=== PATIENT | male | born 1960 | race Caucasian/White ===

== ENCOUNTER 2020-12-06 09:39 | Outpatient (REF) | payer MEDICAID, SELFPAY ==
[2020-12-06 11:12] LABS: MANUAL DIFF FLAG NO
[2020-12-06 11:20] LABS: Basophils Absolute Auto 0.1 X10*3/uL (0.0-0.2); Basophils Percent Auto 1.3 % (0-2); Eosinophils Absolute Auto 0.1 X10*3/uL (0.0-0.4); Eosinophils Percent Auto 2.6 % (0-4); Hematocrit 45.3 % (42-52); Hemoglobin 15.3 g/dl (14.0-18.0); Imm Gran Abs Auto 0.01 X10*3/uL (0.00-0.03); Imm Gran Pct Auto 0.2 % (0.0-0.4); Lymphocytes Absolute Auto 1.8 X10*3/uL (1.2-4.9); Mean Corpuscular HGB Conc 33.8 g/dl (31.0-36.0); Mean Corpuscular Hemoglobin 29.8 pg (27.0-33.0); Mean Corpuscular Volume 88.3 fL (80-98); Mean Platelet Volume 11.2 fL (9.4-12.4); Monocytes Absolute Auto 0.6 X10*3/uL (0.1-1.2); Monocytes Percent Auto 10.4 % (2-11); Neutrophils Absolute Auto 2.8 X10*3/uL (2.0-8.3); Neutrophils Percent Auto 51.5 % (45-73); Platelet Count 215 X10*3/uL (160-400); Red Blood Count 5.13 X10*6/uL (4.60-5.80); Red Cell Distribution Width 12.6 % (11.0-16.0); White Blood Count 5.4 X10*3/uL (4.8-10.8)
[2020-12-06 11:46] LABS: Alanine Aminotransferase 23 U/L (0-40); Albumin Level 4.6 g/dL (3.5-5.0); Alkaline Phosphatase 55 U/L (39-117); Anion Gap 12 (12-20); Aspartate Amino Transferase 22 U/L (5-37); Bilirubin Total 0.4 mg/dL (0.0-1.0); Blood Urea Nitrogen 18 mg/dL (9-16); Calcium 9.4 mg/dL (8.4-10.2); Carbon Dioxide 23 mmol/L (22-29); Chloride 112 mmol/L (96-108); Cholesterol 234 mg/dL; Estimated Glomerular Filt Rate > 60; Glucose Fasting 102 mg/dL (60-99); HDL Cholesterol 37 mg/dL; LDL Cholesterol Calculated 171 mg/dl; Potassium 4.2 mmol/L (3.3-5.1); Sodium 143 mmol/L (135-145); Total Protein 7.7 g/dL (6.5-8.0); Triglycerides 134 mg/dL
== END 2020-12-06 09:40 | disposition home or self-care (01) ==
LOC: HO.MANLDS 09:39
PROVIDERS: PCP Internal Medicine; Visit Provider Physician Assistant
DX: I15.8 Other secondary hypertension (principal)
CPT/HCPCS: 36415; 80053; 80061; 85025

== ENCOUNTER 2024-07-25 10:15 | Outpatient (REF) | payer MEDICAID, SELFPAY ==
--- OUTSIDE RECORDS SUMMARY | 2024-07-25 11:33 | XMS_ITS | Data Portability ---
Author Organization [facility] Service Address [address] [place] [address] Assessment Encounter Date Assessment Date Assessment LastModified by Organization Details LastModified Time 07/25/2024 07/25/2024 Patient presented for medication refill. Patient tolerating medication well at current dose without adverse effects. Refilled as below. Discussed plan with patient, who expressed understanding . Follow up as noted below. [email or web address] Not available 07/25/2024 10:02:02 Plan of Treatment Reminders Order Date Submit Date Provider Last Modified By Organization Details Last Modified Time Details Appointments FOLLOW UP 15 2024 10:00A M JULIENNE MONTGOMERY Not available Not available Not available Lab PSA, serum or plasma 2024 025 [facility], [address] [place] [address], [id number], 07/25/2024 10:07:34 lipid panel, blood 2024 025 [facility], [address] [place] [address], [id number], 07/25/2024 10:07:34 CBC w/ auto diff 2024 025 [facility], [address] [place] [address], [id number], 07/25/2024 10:07:34 hemoglobi n A1c, QN, blood 2024 025 [facility], [address] [place] [address], [address], 07/25/2024 10:07:34 CMP, serum or plasma 2024 025 [facility], [address] [place] [address], [id number], 07/25/2024 10:07:34 CMP, serum or plasma 2023 024 [facility], [address] [place] [address], [id number], 08/14/2023 09:26:08 CBC w/ auto diff 2023 024 [facility], [address] [place] [address], [id number], 08/14/2023 09:26:08 lipid panel, blood 2023 024 [facility], [address] [place] [address], [address], 08/14/2023 09:26:08 PSA, serum or plasma 2023 024 [facility], [address] [place] [address], [id number], 08/14/2023 09:26:08 hemoglobi n A1c, QN, blood 2023 024 [facility], [address] [place] [address], [address], 08/14/2023 09:26:08 CMP, serum or plasma 2020 021 [facility], [address] [place] [address], [address], 12/07/2020 11:31:13 CBC w/ auto diff 2020 021 [facility], [address] [place] [address], [address], 12/07/2020 11:31:13 lipid panel, serum 2020 021 [facility], [address] [facility], [place], [address], 12/07/2020 11:31:13 Referral None recorded. Procedures None recorded. Surgeries None recorded. Imaging None recorded. Medication Orders sertralin e 50 mg tablet 2022 023 [facility] #[id number], [address] [facility] [facility] [address], [place], [place], [phone], 08/15/2022 11:08:33 quetiapin e 400 mg tablet 2022 023 [facility] #[id number], [address] [address], [place], [place], [phone], 08/15/2022 11:08:31 quetiapin e 50 mg tablet 2022 023 [id number], [address] [facility], [facility] [address], [place], [place], [id number], 08/15/2022 11:08:31 quetiapin e 400 mg tablet 2019 020 [facility] #[id number], [address], [id number], 03/03/2020 11:31:47 sertralin e 50 mg tablet 2019 020 [id number], [address] [address], [place], [place], [phone], 03/03/2020 11:31:47 Patient TargetsNo targets recorded. Patient InstructionsNo instructions recorded. Reason for Referral None Reported. Results Created Date Observation Date Name Description Value Unit Range Abnormal Flag Note LastModifiedBy Organization Detail LastModifiedTime Result Notes None recorded. Problems Name Problem SNOMED Code Status Onset Date Resolution Date Notes Provider Name and Address Organization Details Recorded Time Seizure 67936967 Active 2018 Kendrayaneth kate [facility] 9 16:35:38 Anxiety 62486533 Active 2018 Kendra kate [facility] 9 16:35:45 Insomnia 609630862 Active 2018 Kendrayaneth kate [facility] 9 16:35:52 Sleep disorder 42039779 Completed 201805/27/2019August KERMIT Jones [address] [place], [address], [facility] 0 12:13:48 Mood disorder 72968324 Active 2018 Kendrayaneth kate [facility] 9 10:06:15 Depressi ve disorder 41296523 Active 2022 JULIENNE MONTGOMERY [address] [place], [address], [facility] 3 11:04:42 Pain of right shoulder joint 79595829553 600996 Active 2022 JULIENNE MONTGOMERY [address] [place], [address], [facility] 3 11:09:54 Divertic ulitis of sigmoid colon 039757357 Active 2022 JULIENNE MONTGOMERY [address] [place], [address], [facility] 3 10:49:05 Problem Notes None recorded. Procedures Surgical History Date Name Laterality Status Provider Name and Address Organization Details Recorded Time open reduction of fracture with internal fixation completed Kendra Walker [facility] 11/27/2018 10:04:59 Imaging Results None recorded. Procedure Notes None recorded. Medical Equipment None Reported. Allergies Allergen ID Allergen Name Allergen Category Reaction Reaction Severity Criticality Documentation Date Start Date Code Code System Note Provider Name and Address Organization Details Recorded Time 2713 Ativan medicatio n rash Not available Not available 05/29/201892503 9 RxNorm Kendra kate [facility] 9 16:35:08 2714 Product containin g penicilli n (product) medicatio n Not available Not available Not available 05/29/2018 00099 8001 SNOMED Kendra kate [facility] 9 16:35:29 3679 heparin medicatio n Not available Not available Not available 05/27/2019 5224 RxNorm Kendra kate [facility] 0 11:47:58 Medications Name Sig Start Date Stop Date Status Note LastModified by Organization Details LastModified Time ciprofloxaci n 500 mg tablet Take 1 tablet every 12 hours by oral route for 7 days. 08/13 completed Not Available Not Available Not Available cefdinir 300 mg capsule TAKE 1 CAPSULE BY MOUTH every 12 hours FOR 10 DAYS 07/25 completed Not Available Not Available Not Available sertraline 50 mg tablet TAKE 1 TABLET BY MOUTH EVERY DAY active Not Available Not Available No t Available quetiapine 50 mg tablet TAKE 1 TABLET BY MOUTH EVERY DAY active Not Available Not Available No t Available quetiapine 400 mg tablet take one tab qd po 2024 active Not Available Not Available Not Avai lable Vitals Date Recorded Body height Body mass index (BMI) Body weight Heart rate Oxygen saturation Oxygen saturation in Arterial blood by Pulse oximetry Systolic blood pressure Diastolic blood pressure Provider Name and Address Organization Details Last Updated DateTime 0 180.98 cm 35.2 kg/m2 484593. 26 g 71 /min 98 % 98 % 106 mm[Hg] 64 mm[Hg] JULIENNE MONTGOMERY [address] [place], [address] 0 11:18:21 Date Recorded Body height Body mass index (BMI) Body weight Heart rate Oxygen saturation Oxygen saturation in Arterial blood by Pulse oximetry Systolic blood pressure Diastolic blood pressure Provider Name and Address Organization Details Last Updated DateTime 1 180.98 cm 36.8 kg/m2 639377. 21 g 72 /min 98 % 98 % 142 mm[Hg] 70 mm[Hg] Kourtney Matos [facility] 1 09:24:49 Date Recorded Body height Body mass index (BMI) Body weight Heart rate Oxygen saturation Oxygen saturation in Arterial blood by Pulse oximetry Systolic blood pressure Diastolic blood pressure Provider Name and Address Organization Details Last Updated DateTime 3 187.96 cm 33.6 kg/m2 933120. 2 g 75 /min 98 % 98 % 128 mm[Hg] 80 mm[Hg] Izabela Magallonmond [facility] 3 10:56:32 Date Recorded Body height Body mass index (BMI) Body weight Heart rate Oxygen saturation Oxygen saturation in Arterial blood by Pulse oximetry Systolic blood pressure Diastolic blood pressure Provider Name and Address Organization Details Last Updated DateTime 4 187.96 cm 31.3 kg/m2 831645. 82 g 54 /min 98 % 98 % 136 mm[Hg] 76 mm[Hg] Reno Huffman [facility] 4 09:05:05 Date Recorded Body height Body mass index (BMI) Body weight Heart rate Oxygen saturation Oxygen saturation in Arterial blood by Pulse oximetry Systolic blood pressure Diastolic blood pressure Provider Name and Address Organization Details Last Updated DateTime 5 187.96 cm 31.6 kg/m2 248479. 72 g 72 /min 98 % 98 % 126 mm[Hg] 82 mm[Hg] Faustino Miller [facility] 5 09:47:44 Social History Question Answer Notes LastModified by Organizat ion Details LastModified Time Tobacco Smoking Status Never Smoker marijuana Reno Huffman [facility] 08/14/2023 09:06:26 What Was The Date Of Your Most Recent Tobacco Screening? 07/25/2024 [email or web address] Information not available 07/25/2024 Do You Or Have You Ever Used Any Other Forms Of Tobacco Or Nicotine? No [email or web address] Information not available 08/15/2022 Sex: Unknown Functional Status None recorded. Mental Status None recorded. Family History Relationship Description Onset Age of this Age Resolved Age Notes LastModified by Organization Details LastModified Time Father Family history of malignant neoplasm 80 esopha geal cancer sbucko Not available 11/27/2018 10:03:52 Medical History No medical history recorded. Immunizations Vaccine Type Date Status Note Provider Nam e and Address Organization Details Recorded Time COVID-19, mRNA, LNP-S, PF, 100 mcg/0.5mL dose or 50 mcg/0.25mL dose 10/28/2020 completed Kourtney kate [facility] 12/06/2020 09:23:32 COVID-19, mRNA, LNP-S, PF, 100 mcg/0.5mL dose or 50 mcg/0.25mL dose 12/03/2020 completed Kourtney kate [facility] 12/06/2020 09:23:36 Past Encounters Encounter ID Performer Location Encounter Start Date Encounter Closed Date Diagnosis/Indication Diagnosis SNOMED-CT Code Diagnosis ICD10 Code Diagnosis Note [id number],[place] [address] 05/31/2018 08:49:18 05/31/2018 10:03:30 Insomnia 933394872 G47.00 will do labs for monitoring of seroquel Anxiety 95484302 F41.9 Seizure 95142002 R56.[id number],[place] [address] 05/27/2019 11:32:32 05/27/2019 12:22:53 Insomnia 445787605 G47.00 will do labs for monitoring of seroquel Anxiety 03776256 F41.9 Seizure 08299955 R56.9 Mood disorder 27861397 F 39 Essential hypertension 88795032 I10 mildly elevated will monitor [id number] JULIENNE MONTGOMERY [address],[place] [address] 03/03/2020 11:03:40 03/03/2020 12:14:46 Anxiety 22664043 F41.9 stable will give 90 day supply of both medication as patient is going on a trip for work for the next 4 months Insomnia 496462085 G47.0 0 stable Depressive disorder 3548 9007 F32.9 stable [id number] JULIENNE MONTGOMERY [facility] [address],[place] [address] 12/06/2020 09:20:07 12/06/2020 09:53:02 Mood disorder 71352740 F39 stable Seizure 24772315 R56.9 stable Anxiety 41319491 F41.9 stable will give 90 day supply of both medication as patient is going on a trip for work for the next 4 months Labile hyp ertension due to being in a clinical environment 703771022 I15.8 elevated in office today [id number] JULIENNE MONTGOMERY [facility] [address] [facility] [address],[place] [address] 08/15/2022 10:50:44 08/15/2022 12:02:11 Anxiety 86800192 F41.9 stable will give 90 day supply of both medication as patient is going on a trip for work for the next 4 months Insomnia 025887972 G47.0 0 stable Mood disorder 21614468 F 30.10 stable Seizure 85429896 G40.89 stable Depressive disorder 3548 9007 F32.9 stableagre ed to bump up to 450 mgmax dose safely that could be taken is 750 mg Pain of ri ght shoulder joint 7661233222 1372187 M25.511 mild achenothin g significan t at this time [id number] JULIENNE MONTGOMERY [facility] [address] [facility] [address] [address],[place] [address] 08/14/2023 09:00:51 08/14/2023 14:58:19 Anxiety 95361391 F41.1 stable Depressive disorder 3548 9007 F32.9 stable Mood disorder 40675128 F 30.10 F39 doing really well Seizure 11381313 G40.89 stable Adult heal th examination 116342325 Z00.00 will set lab work [id number] JULIENNE MONTGOMERY [facility] [address] [facility] [address],[place] [address] 07/25/2024 09:40:53 07/25/2024 10:09:39 Renewal of prescription 917531860 Z76.0 stable Anxiety 22673586 F41.1 stable Depressive disorder 3548 9007 F32.9 stable Screening for cardiovascular system disease 549941626 Z13.6 will set up with lab work Diabetes m ellitus screening 841458272 Z13.1 will set up with lab-work Screening for malignant neoplasm of prostate 962895007 Z12.5 will set up with lab-work Health Concerns Section Related Observation LastModified by Organization Detai ls LastModified Time None Recorded Concern Status LastModified by Organization Details LastModified Time None Recorded Advance Directives Directive None Recorded Payers Encounter Date Sequence Insurance Name Policy Number Policy Pappas Covered Member ID Pappas Member ID Guarantor Name 03/03/2020 1 [place] Christiano Dacosta [id number] Christiano Olesya 12/06/2020 1 [place] [employer] Christiano Adams Davmurphyau [id number] Christiano Cotamikaela 08/15/2022 1 [place] Chritsiano Cotaau [id number] Christiano Cotamikaela 08/14/2023 1 [place] [employer] Christiano Cotaau [id number] Christiano Olesya 07/25/2024 1 [place] Christiano Cotaau [id number] Christiano Tongbandar Notes Date Note Type Note Provider Name a mi Address Organization Details Recorded Time 0 text/html medication fu the patient is doing well on his medication has been on them for a long time, does with the combination helps him sleep at night no side effects to the medication patient going away for work for the next 4 months no fever, no sob, no abdominal pain, no chest pain, no fatigue, no sore throat, JULIENNE MONTGOMERY [address] [place], [address], [facility] 03/03/2020 11:33:14 1 text/html medication and BP fu BP is elevated today in the officepatient reports that he smoke marijuana before coming into the office recheck is 118/20 in the R arm which is much improveddiscussed with patient to avoid smoking before coming to the office mood disorder: medications doing well with his current dosesdoes say he has some difficulties with sleeping some timesrelated to work stress anxiety: stable seizure: stable has not had a seizure for a long time JULIENNE MONTGOMERY [address] [place], [address], [facility] 12/06/2020 09:35:27 3 text/html medication f/u anxiety: the patient is stable on medication currentlydid agree to bump up the patient's seroquel insomnia: the patient sleeping is okay mood disorder: stablefeeling goodno concerns currently seizure: stable for the last 20 years BP is excellent without medication(incorrect height documented today) patient is 5'11.25 stable some discomfort in his right shoulder (hx of fx)along the AC joint JULIENNE MONTGOMERY [address] [place], [address], [facility] 08/15/2022 11:11:39 4 text/html medication f/u the patient reports he stopped logging recently, noted his carpal tunnel improved the patient reports that he is overall doing goodthe patient reports he is working on BP is good medications is working well for the patientno side effects to his current medications no recent diverticulitisno recent seizure JULIENNE MONTGOMERY [address] [place], [address], [facility] 08/14/2023 09:22:39 5 text/html medication check anxiety: stable on medication depression d/o: stable on medication BP is excellent, patient stable on medications, doses work great, no issues at this time per patient, feels good the patient is due for bloodwork will set up and will have them done today JULIENNE MONTGOMERY [address] [place], [address], [facility] 07/25/2024 10:08:32
--- OUTSIDE RECORDS SUMMARY | 2024-07-25 11:34 | XMS_ITS | Continuity of Care Document ---
Author Organization [place] [facility] Address [address] [place] [address] Assessment Encounter Date Assessment Date Assessment LastModified [...] Lab PSA, serum or plasma 2024 025 [facility], [address] [place] [address], [address], 07/25/2024 10:07:34 lipid panel, blood 2024 025 [facility], [address] [place] [address], [address], 07/25/2024 10:07:34 CBC w/ auto diff 2024 025 [facility], [address] [place] [address], [address], 07/25/2024 10:07:34 hemoglobi n A1c, QN, blood 2024 025 [facility], [address] [place] [address], [address], 07/25/2024 10:07:34 CMP, serum or plasma 2024 025 [facility], [address] [place] [address], [place], [address], 07/25/2024 10:07:34 Referral None recorded. Procedures None recorded. Surgeries None recorded. Imaging None recorded. Medication Orders None recorded. Patient TargetsNo targets recorded. Patient InstructionsNo instructions recorded. Reason for Referral None Reported. Problems Name Problem SNOMED Code Status Onset Date Resolution Date Notes Provider Name and Address Organization Details Recorded Time Seizure 40142519 Active 2018 Kendra kate [facility] 9 16:35:38 Anxiety 31316757 Active 2018 Kendra kate [facility] 9 16:35:45 Insomnia 325257239 Active 2018 Kendra kate [facility] 9 16:35:52 Sleep disorder 48837542 Completed 201805/27/2019August KERMIT Jones [address] [place], [address], [facility] 0 12:13:48 Mood disorder 45547158 Active 2018 Kendrayaneth kate [facility] 9 10:06:15 Depressi ve disorder 17736088 Active 2022 JULIENNE MONTGOMERY [address] [place], [address], [facility] 3 11:04:42 Pain of right shoulder joint 03753457849 883022 Active 2022 JULIENNE MONTGOMERY [address] [place], [address], [facility] 3 11:09:54 Divertic ulitis of sigmoid colon 267665208 Active 2022 JULIENNE MONTGOMERY [address] [place], [address], [place] [facility] 3 10:49:05 Problem Notes None recorded. Procedures Surgical History Date Name Laterality Status Provider Name and Address Organization Details Recorded Time open reduction of fracture with internal fixation completed Kendra Walker [facility] 11/27/2018 10:04:59 Imaging Results None recorded. Procedure Notes None recorded. Medical Equipment None Reported. Allergies Allergen ID Allergen Name Allergen Category Reaction Reaction Severity Criticality Documentation Date Start Date Code Code System Note Provider Name and Address Organization Details Recorded Time 2713 Ativan medicatio n rash Not available Not available 05/29/201890047 9 RxNorm Kendrayaneth Walker [facility] 9 16:35:08 2714 Product containin g penicilli n (product) medicatio n Not available Not available Not available 05/29/2018 08121 8001 SNOMED Kendra Denise [facility] 9 16:35:29 3679 heparin medicatio n Not available Not available Not available 05/27/2019 5224 RxNorm Kendrayaneth Walker [facility] 0 11:47:58 Medications Name Sig Start Date [...] Updated DateTime 5 187.96 cm 31.6 kg/m2 192315. 72 g 72 /min 98 % 98 % 126 mm[Hg] 82 mm[Hg] Faustino Miller [facility] 09:47:44 Social History Question Answer Notes LastModified by Organizat ion Details LastModified Time Tobacco Smoking Status Never Smoker marijuana Reno Huffman [facility] 08/14/2023 09:06:26 What Was The Date Of Your Most Recent Tobacco Screening? 07/25/2024 [email or web address] Information not available 07/25/2024 Do You Or Have You Ever Used Any Other Forms Of Tobacco Or Nicotine? No [email or web address] Information not available 08/15/2022 Sex: Unknown Functional [...] 50 mcg/0.25mL dose 10/28/2020 completed Kourtney kate [facility] 12/06/2020 09:23:32 COVID-19, mRNA, LNP-S, PF, 100 mcg/0.5mL dose or 50 mcg/0.25mL dose 12/03/2020 completed Kourtney kate [facility] 12/06/2020 09:23:36 Past Encounters Encounter ID Performer Location Encounter Start Date Encounter Closed Date Diagnosis/Indication Diagnosis SNOMED-CT Code Diagnosis ICD10 Code Diagnosis Note [id number] JULIENNE MONTGOMERY [facility] [address] [facility] [address] 07/25/2024 09:40:53 07/25/2024 10:09:39 Renewal of prescription 719202988 Z76.0 stable Anxiety 37639004 F41.1 stable Depressive disorder 3548 9007 F32.9 stable Screening for cardiovascular system disease 960258451 Z13.6 will set up with lab work Diabetes m ellitus screening 838471268 Z13.1 will set up with lab-work Screening for malignant neoplasm of prostate 830769808 Z12.5 will set up with lab-work Health Concerns Section Related Observation LastModified by Organization Detai ls LastModified Time None Recorded Concern Status LastModified by Organization Details LastModified Time None Recorded Payers Encounter Date Sequence Insurance Name Policy Number Policy Pappas Covered Member ID Pappas Member ID Guarantor Name 07/25/2024 1 [place] [facility] Christiano Dacosta [id number] Christiano Dacosta Notes Date Note Type Note Provider Name a nd Address Organization Details Recorded Time 07/25/2024 text/html medication check anxiety: stable on medication depression d/o: stable on medication BP is excellent, patient stable on medications, doses work great, no issues at this time per patient, feels good the patient is due for bloodwork will set up and will have them done today JULIENNE MONTGOMERY [address] [place] [address], [place], [address], [facility] 07/25/2024 10:08:32
[2024-07-25 13:45] LABS: MANUAL DIFF FLAG NO
[2024-07-25 14:00] LABS: Estimated Average Glucose 108 mg/dL; Hemoglobin A1c % 5.4 % (<6.0)
[2024-07-25 14:04] LABS: Basophils Absolute Auto 0.1 X10*3/uL (0.0-0.2); Basophils Percent Auto 1.3 % (0-2); Eosinophils Absolute Auto 0.1 X10*3/uL (0.0-0.4); Eosinophils Percent Auto 2.2 % (0-4); Hematocrit 45.1 % (42.0-52.0); Hemoglobin 15.3 g/dl (14.0-18.0); Imm Gran Abs Auto 0.01 X10*3/uL (0.00-0.03); Imm Gran Pct Auto 0.2 % (0.0-0.4); Lymphocytes Absolute Auto 2.3 X10*3/uL (1.2-4.9); Lymphocytes Percent Auto 38.2 % (20-40); Mean Corpuscular HGB Conc 33.9 g/dl (31.0-36.0); Mean Corpuscular Hemoglobin 30.3 pg (27.0-33.0); Mean Corpuscular Volume 89.3 fL (80.0-98.0); Mean Platelet Volume 12.3 fL (9.4-12.4); Monocytes Absolute Auto 0.4 X10*3/uL (0.1-1.2); Monocytes Percent Auto 7.2 % (2-11); Neutrophils Percent Auto 50.9 % (45-73); Platelet Count 120 X10*3/uL (160-400); Red Blood Count 5.05 X10*6/uL (4.60-5.80); Red Cell Distribution Width 12.7 % (11.0-16.0); White Blood Count 5.9 X10*3/uL (4.8-10.8)
[2024-07-25 14:15] LABS: Alanine Aminotransferase 29 U/L (0-40); Albumin Level 4.6 g/dL (3.5-5.0); Alkaline Phosphatase 59 U/L (39-117); Anion Gap 10 (12-20); Aspartate Amino Transferase 29 U/L (5-37); Bilirubin Total 0.5 mg/dL (0.0-1.0); Blood Urea Nitrogen 17 mg/dL (9-16); Calcium 9.4 mg/dL (8.4-10.2); Carbon Dioxide 25 mmol/L (22-29); Chloride 108 mmol/L (96-108); Cholesterol 244 mg/dL (<200); Estimated Glomerular Filt Rate > 60; Glucose Random 92 mg/dL (60-115); HDL Cholesterol 38 mg/dL (>40); LDL Cholesterol Calculated 172 mg/dL (<100); Sodium 139 mmol/L (135-145); Total Protein 8.4 g/dL (6.5-8.0); Triglycerides 172 mg/dL (<150)
[2024-07-25 14:24] LABS: Prostate Specific Antigen 2.48 ng/mL (<0.05-4.0)
== END 2024-07-25 10:16 | disposition home or self-care (01) ==
LOC: HO.MANLDS 10:15
PROVIDERS: Visit Provider Physician Assistant
DX: Z13.6 Encounter for screening for cardiovascular disorders (principal); Z13.1 Encounter for screening for diabetes mellitus; Z12.5 Encounter for screening for malignant neoplasm of prostate
CPT/HCPCS: 36415; 80053; 80061; 83036; 84153; 85025